=== PATIENT | female | born 2005 | race Two or more races ===

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

== ENCOUNTER 2024-12-16 00:55 | Emergency (ER) | payer BC, SELFPAY ==
--- OUTSIDE RECORDS SUMMARY | 2024-12-16 00:56 | XMS_ITS | Clinical Summary ---
Author Organization [facility] Address [address] [place] [address] Phone Care Team Providers Care Cloth Folder Hand Name Role Phone Juwan Melchor MD Primary Care Provider [phone] Allergies No known active allergies Medications Drospirenone-Et hinyl Estradiol 3-0.02 MG TabletIndicatio ns:Polycystic Ovary Syndrome Take 1 Tablet by mouth daily. Indications: Polycystic Ovary Syndrome 28 Tablet 11 Active Active Problems Problem Noted Date Diagnosed Date Menometrorrhagia 03/25/2024 Social History Tobacco Use Types Packs/Day Years Used Date Smoking Tobacco: Never Smokeless Tobacco: Never Tobacco Cessation:Counseling Given: No Alcohol Use Standard Drinks/Week Comments Never 0 (1 standard drink = 0.6 oz pur e alcohol) Comments Unknown Sex and Gender Information Value Date Recorded Sex Assigned at Not on file Legal Sex Female 8:05 AM CDT Gender Identity Not on file Sexual Orientation Not on file Last Filed Vital Signs Vital Sign Reading Time Taken Comments Blood Pressure 116/74 03/25/2024 9:22 AM CDT Pulse 88 03/25/2024 9:22 AM CDT Temperature 36.2 C (97.1 F) 03/25/2024 9:22 AM CDT Respiratory Rate 16 03/25/2024 9:22 AM CDT Oxygen Saturation 98% 03/25/2024 9:22 AM CDT Inhaled Oxygen Concentration - - Weight 71.2 kg (157 lb) 03/25/2024 9:22 AM CDT Height 173 cm (5' 8.11 ) 03/25/2024 9:22 AM CDT Body Mass Index 23.79 03/25/2024 9:22 AM CDT Plan of Treatment Health Maintenance Due Date Last Done Comments Hepatitis C Virus (HCV) Screening 2004 Human Papillomavirus (HPV) Immunization (1 - 3-dose series) 11/11/2019 Meningococcal B Immunization (1 of 2 - Standard) 2020 Influenza Immunization (#1) 2024 SARS-COV-2 Immunization (3 - 2023- season) 2024 01/01/2021, 12/11/2020 Respiratory Syncytial Virus (RSV) Immunization (Adult) (1 - 1-dose 75+ series) 11/11/2079 Hepatitis B Immunization Completed 005, 2004, 2004 TdaP Immunization Completed 09/16/2019 Meningococcal Immunization (ACWY) Completed 05/23/2022, 09/16/2019 Pneumococcal Immunization Combined Aged Out No longer eligible b ased on patient's age to complete this topic Rotavirus Immunization Aged Out No lo nger eligible based on patient's age to complete this topic Insurance MEDICAID [place] Care Teams Cloth Folder Hand Relationship Specialty Start Date End Date Juwan Melchor MD [address] [place] [address] PCP - General Family Medicine 03/25/24
--- OUTSIDE RECORDS SUMMARY | 2024-12-16 00:56 | XMS_ITS ---
Author Organization [facility] Address [address] [place] [address] Phone Care Team Providers Care Sprinkler Inspector Name Role Phone Juwan Melchor MD Primary Care Provider [phone] [facility] Status:Enrolled (Active) Start date:06/01/2024 Enrollment date:06/01/2024 Related social drivers of health:Intimate Partner Violence, Social Connections, Alcohol Use, Financial Resource Strain, Depression, Stress, Physical Activity, Food Insecurity, Transportation Needs, Housing Stability, Utilities Continued Care and Services Coordination
--- OUTSIDE RECORDS SUMMARY | 2024-12-16 00:56 | XMS_ITS | Clinical Summary ---
Author Organization [facility] Address [address] [place] [address] Phone Care Team Providers Care Clamp Remover Name Role Phone Unavailable Primary Care Provider Unavailabl e Allergies No known active allergies Medications * This document contains information received from the source organization and may not represent a complete record from that organization. tretinoin (ATRALIN) 0.05 % topical gel Apply 1 application topically nightly. 2 Active cyclobenzaprine 5 mg tablet Take 1 (one) tablet by mouth 2 (two) times daily as needed for Muscle spasms. 2 Active norelgestromin-e thin.estradioL (XULANE) 150-35 mcg/[address] 1 (one) patch onto the skin once a week. 2 Active cholecalciferol (VITAMIN D3) 50 mcg (2,000 unit) capsule Take 1 (one) capsule by mouth daily. 2 Active sertraline (ZOLOFT) 100 mg tablet Take 1 (one) tablet by mouth daily. 3 Active hydrOXYzine HCL 25 mg tablet Take 2 (two) tablets by mouth nightly. 3 Active lidocaine (LIDODERM) 5 % topical patchIndications :Acute low back pain, unspecified back pain laterality, unspecified whether sciatica present Apply 1 patch topically every 12 (twelve) hours as needed (low back pain) 15 each 4 Active meloxicam (MOBIC) 15 mg tabletIndication s:Acute low back pain, unspecified back pain laterality, unspecified whether sciatica present Take 1 tablet (15 mg total) by mouth every day 30 tablet Active Family History Relation Name Status Comments Brother Servando Mother [place] Social History Tobacco Use Types Packs/Day Years Used Date Smoking Tobacco: Never Passive Smoke Exposure: Never Smokeless Tobacco: Never Alcohol Use Standard Drinks/Week Comments Never 0 (1 standard drink = 0.6 oz pur e alcohol) Comments No Sex and Gender Information Value Date Recorded Sex Assigned at Not on file Legal Sex Female 9:14 AM CDT Gender Identity Not on file Sexual Orientation Not on file Last Filed Vital Signs Vital Sign Reading Time Taken Comments Blood Pressure 111/74 08/14/2024 4:16 PM [employer] OPERATOR Pulse 93 08/14/2024 4:16 PM [employer] CAR OPERATOR Temperature 36.6 C (97.8 F) 08/14/2024 4:16 PM [employer] CAR OPERATOR Respiratory Rate 18 08/14/2024 4:16 PM [employer] CAR OPERATOR Oxygen Saturation 99% 08/14/2024 4:16 PM [employer]LEY CAR OPERATOR Inhaled Oxygen Concentration - - Weight 70.6 kg (155 lb 10.3 oz) 08/14/2024 4:16 PM [employer]LEY CAR OPERATOR Height 172.7 cm (5' 8 ) 08/14/2024 4:16 PM [employer]OLLEY CAR OPERATOR Body Mass Index 23.67 08/14/2024 4:16 PM [employer] CAR OPERATOR Plan of Treatment Not on file [place]
[2024-12-16 00:57] VITALS: BP 132/90; PULSE 94; RESP 20; TEMP 36.2; O2SAT 100
--- OUTSIDE RECORDS SUMMARY | 2024-12-16 06:04 | XMS_ITS ---
Author Organization [facility] Address [address] [place] [address] Phone Care Team Providers Care Spine Surgeon Name Role Phone Juwan Melchor MD Primary Care Provider [phone] [facility] Status:Enrolled (Active) Start date:06/01/2024 Enrollment date:06/01/2024 Related social drivers of health:Intimate Partner Violence, Social Connections, Alcohol Use, Financial Resource Strain, Depression, Stress, Physical Activity, Food Insecurity, Transportation Needs, Housing Stability, Utilities Continued Care and Services Coordination
--- OUTSIDE RECORDS SUMMARY | 2024-12-16 06:04 | XMS_ITS | Clinical Summary ---
Author Organization [facility] Address [address] [place] [address] Phone Care Team Providers Care Referral Nurse Name Role Phone Unavailable Primary Care Provider [...] Comments Blood Pressure 111/74 08/14/2024 4:16 PM HYDRAULIC SPECIALIST Pulse 93 08/14/2024 4:16 PM HYDRAULIC SPECIALIST Temperature 36.6 C (97.8 F) 08/14/2024 4:16 PM HYDRAULIC SPECIALIST Respiratory Rate 18 08/14/2024 4:16 PM HYDRAULIC SPECIALIST Oxygen Saturation 99% 08/14/2024 4:16 PM HYDRAULIC SPECIALIST Inhaled Oxygen Concentration - - Weight 70.6 kg (155 lb 10.3 oz) 08/14/2024 4:16 PM HYDRAULIC SPECIALIST Height 172.7 cm (5' 8 ) 08/14/2024 4:16 PM HYDRAULIC SPECIALIST Body Mass Index 23.67 08/14/2024 4:16 PM HYDRAULIC SPECIALIST Plan of Treatment Not on file [place]
--- OUTSIDE RECORDS SUMMARY | 2024-12-16 06:04 | XMS_ITS | Clinical Summary ---
Author Organization [facility] Address [address] [place] [address] Phone Care Team Providers Care Invoicing Machine Operator Name Role Phone Juwan Melchor MD Primary Care Provider [phone] Allergies No known active allergies Medications Drospirenone-Et [...] this topic Insurance [place] Care Teams Invoicing Machine Operator Relationship Specialty Start Date End Date Juwan Melchor MD [address] [place] [address] PCP - General Family Medicine 03/25/24
== END 2024-12-16 05:00 | disposition left against medical advice (07) ==
DX: S39.92XA Unspecified injury of lower back, initial encounter (principal)
CPT/HCPCS: 99199